=== PATIENT | female | born 1985 | race Caucasian/White ===

== ENCOUNTER 2024-08-02 10:03 | Emergency (ER) | payer OTHER, SELFPAY ==
--- NOTE | ~2024-08-02 | CT_ITS ---
EXAMINATION: CT CHEST WITHOUT CONTRAST CLINICAL INFORMATION: PNA, SOB/cough/night sweats COMPARISON: None available. TECHNIQUE: Multidetector volumetric CT imaging of the chest was done. Axial MIP volume rendering provided. Sagittal and coronal reformatted images were obtained. This CT examination was performed using dose optimization techniques as appropriate, variously including the following: *Automated exposure control *Adjustment of mA and/or kV according to patient size (this includes techniques or standardized protocols for targeted exams where dose is matched to indication/reason for exam; i.e. extremities or head) *Use of iterative reconstruction technique DLP: 291 mGy-cm FINDINGS: LUNGS: Consolidation in the lingula with air bronchograms. No suspicious lung nodules. MEDIASTINUM: The mediastinum is normal. Left thyroid mass measures 3.8 x 2.9 cm. The right thyroid gland is unremarkable. CORONARY ARTERY CALCIFICATION: None visualized on this study. PLEURA: There is no pleural effusion. No pleural mass or thickening. AXILLA: No lymphadenopathy. UPPER ABDOMEN: Unremarkable. OSSEOUS STRUCTURES: Mild degenerative changes of the thoracic spine. No destructive osseous lesions. CT/CT chest wo IV con IMPRESSION: 1. Consolidation in the lingula with air bronchograms, consistent with pneumonia. 2. Left thyroid mass measures 3.8 cm. Recommend thyroid ultrasound. Fleischner guidelines were followed. Electronically signed by: Yokasta Hdz MD 08/02/2024 01:21 PM [facility]
[2024-08-02 10:22] VITALS: BP 139/78; PULSE 95; RESP 18; TEMP 36.9; O2SAT 99; BMI 29.3
--- NOTE | 2024-08-02 10:22 | ED.SOB ---
HPI - SOB/Dyspnea General Chief Complaint: General Medical Stated Complaint: Pneumonia Time Seen by Provider: 08/02/24 10:50 Source: patient and family Mode of arrival: ambulatory Limitations: no limitations History of Present Illness ED Provider: Khloe Richey APRN HPI Narrative: 39-year-old female who has no known history presents to the ER with upper respiratory symptoms for more than 2 weeks. Patient reports she went to urgent care on July 22 and was diagnosed with a left lower lobe pneumonia. She was placed on azithromycin for 5 days and cefpodoxime for 7 days. She was also prescribed a Ventolin inhaler p.r.n.. Patient followed up this morning with urgent care as she continues to have symptoms of productive cough, night sweats. She had a repeat x-ray today at urgent care which showed continue left lower lobe pneumonia was referred into the emergency room for further evaluation. Patient denies any shortness of breath or chest pain. She denies any fever. She denies any weight loss. She denies any leg swelling or leg pain. She has had to use the inhaler intermittently. She reports the cough is productive with clear or white sputum. She denies any tobacco smoking or vaping Related Data Previous Rx's ?Medication ?Instructions ?Recorded codeine 10 mg-guaifenesin 100 mg/5 5 ml PO Q6H PRN cough #60 mL 08/02/24 mL oral liquid (Virtussin AC) doxycycline hyclate 100 mg capsule 100 mg PO BID #14 caps 08/02/24 prednisone 20 mg tablet 40 mg (2 x 20 mg) PO DAILY 5 days 08/02/24 #10 tabs Allergies Allergy/AdvReac Type Severity Reaction Status Date / Time No Known Allergies Allergy Verified 08/02/24 10:24 Review of Systems Review of Systems: Yes all other systems are reviewed and are negative Constitutional: Constitutional: Reports no additional constitutional complaints, Denies body ache(s), Denies chills, Denies fever(s), Denies headache(s), Reports night sweats, Denies weakness and Denies weight loss Eyes: Eyes: Reports no additional eye complaints and Denies change in vision ENT: Reports system reviewed and no additional complaints, except as documented, Denies dizziness, Denies headache(s), Denies nasal congestion, Denies nasal discharge and Denies neck pain Cardiovascular: Cardiovascular: Reports no additional cardiovascular complaints, Denies chest pain, Denies leg edema and Denies dyspnea Respiratory: Respiratory: Reports no additional respiratory complaints, Reports cough and Denies dyspnea Gastrointestinal: Gastrointestinal: Reports no additional gastrointestinal complaints, Denies abdominal pain, Denies diarrhea, Denies nausea and Denies vomiting Genitourinary: Genitourinary: Reports no additional female genitourinary complaints and Denies urinary incontinence Musculoskeletal: Musculoskeletal: Reports no additional musculoskeletal complaints, Denies back pain, Denies arthralgias, Denies joint swelling, Denies neck pain, Denies numbness and Denies tingling Integumentary/Breasts: Skin/Breast: Reports system reviewed and no additional complaints, except as docu and Denies rash Neurologic: Reports system reviewed and no additional complaints, except as documented, Denies Abnormal speech present, Denies dizziness, Denies headache(s), Denies numbness, Denies tingling and Denies weakness PMFSH Past Medical History Attestation statement: The following information was validated with the patient. Source: old records reviewed and nursing notes reviewed Social History Social History Advance Directives: No Advance Directives Information Provided: No Physical Exam Vital Signs: Vital Signs: Last Vital Signs Temp 98.1 F 08/02/24 13:56 Pulse 82 08/02/24 13:56 Resp 18 08/02/24 13:56 BP 141/87 H 08/02/24 13:56 Pulse Ox 99 08/02/24 13:56 O2 Del Method Room Air 08/02/24 13:56 BMI result Body Mass Index 29.3 Const: General: cooperative, healthy appearing, comfortable and no acute distress Orientation/consciousness: patient oriented x3 Limitations: no limitations HEENT: Head: Yes normal to inspection Ears: hearing grossly normal bilaterally and TM's normal bilaterally General nose exam: Normal external nose present Face and sinus: Yes normal facial exam Mouth: Normal oral and palatal mucosa present Throat: Yes posterior oropharynx normal, Yes tonsils normal and Yes uvula midline Eyes: General: appearance normal, both eyes and all related structures Pupils: Equal, round and reactive pupils present Neck: Neck: Yes normal visual inspection, Yes full ROM, Yes no lymphadenopathy and Yes no meningeal signs Chest: Chest palpation & inspection: normal inspection of the chest Resp: Effort & Inspection: normal respiratory effort Auscultation: clear to auscultation bilaterally Cardio: Rate: regular rate Rhythm: regular rhythm Peripheral pulses: Peripheral pulses 2+ throughout GI: Inspection: Yes normal to inspection Palpation (GI): Soft to palpation and nontender Auscultation: normal bowel sounds Back/Spine/Pelvis: Thoracic/Lumbar Spine: thoracic and lumbar spine normal to inspection Skin: General skin exam: no rashes or lesions noted Neuro: General: patient oriented x3, no meningeal signs, no focal motor deficits and normal sensation to monofilament Cranial nerves: Yes Equal, round and reactive pupils present Cognition (Neuro): normal cognition Speech: No Abnormal speech present Gait exam (Neuro): Normal gait present Motor exam (neuro): 5/5 motor strength present throughout Extrem: General: Yes normal to inspection, Yes no pedal edema and Yes no calf tenderness Course Course Course Narrative: This is a rapid medical exam. Deferred additional HPI, ROS, PE to primary provider. 39 yo female here with persistent PNA on x-ray with symptoms of cough, chest tightness, night sweats. Initially diagnosed 07/22 and given azithromycin/cefpodoxime. Had f/u x-ray today due to persistent symptoms and has continued PNA. Sent from with concern for need for CT/IV abx Will obtain labs. ONEIDA William APRN Reevaluation(s) Reevaluation #1: CT shows pneumonia. Patient be discharged home with antibiotics and prednisone. It also shows an incidental finding of a thyroid mass. I did discuss this finding with the patient she is aware of this already. She is being seen by Endocrinology and has a follow up in place. Reviewed worrisome signs and symptoms of when to return to the emergency room. Comfortable plan for discharge home. Medical Decision Making Medical Decision Making MDM Narrative: 39-year-old female here with persistent pneumonia on x-ray despite completing a course of antibiotics with symptoms of productive cough and night sweats. Patient is overall well-appearing Her lungs are clear Her vitals including her oxygen level are normal She may have continued pneumonia on x-ray although clinically she feels okay overall. I will obtain lab, and a CT of her chest Differential Diagnosis Differential Diagnoses: The differential diagnosis associated with the presentation includes Pneumonia, malignancy Low suspicion for PE with perc O Admission/Observation Consideration of admission/observation: Escalation of care including admission/observation considered CT does show a consolidation. Patient has done 1 round of antibiotics with continued pneumonia seen. Now this may be residual pneumonia but patient is still complaining of some cough and night sweats and so I would give her another round of antibiotics as well as add some prednisone. She has no hypoxia or tachypnea and is not requiring supplemental oxygen. She is not meet any sepsis criteria. She is overall very well-appearing and so I do not believe that she needs admission at this time for IV antibiotics. This was discussed with the patient and she agrees with this plan of care. Lab Data MDM Lab Attestation statement: I reviewed the patient's lab results. 08/02/24 10:34 08/02/24 10:34 Labs: Lab Results 08/02/24 Range/Units 10:34 WBC 7.1 (4.8-10.8) X10*3/uL RBC 4.35 (4.20-5.50) X10*6/uL Hgb 13.2 (12.0-16.0) g/dl Hct 39.4 (37.0-47.0) % MCV 90.6 (80.0-98.0) fL MCH 30.3 (27.0-33.0) pg MCHC 33.5 (31.0-35.0) g/dl RDW 12.7 (11.0-16.0) % Plt Count 385 (160-400) X10*3/uL MPV 9.4 (9.4-12.3) fL Immature Gran % (Auto) 0.4 (0.0-0.4) % Neut % (Auto) 68.4 (45-73) % Lymph % (Auto) 19.5 L (20-40) % Navarro % (Auto) 8.0 (2-11) % Eos % (Auto) 3.4 (0-4) % Baso % (Auto) 0.3 (0-2) % Lymph # (Auto) 1.4 (1.2-4.9) X10*3/uL Navarro # (Auto) 0.6 (0.1-1.2) X10*3/uL Eos # (Auto) 0.2 (0.0-0.4) X10*3/uL Baso # (Auto) 0.0 (0.0-0.2) X10*3/uL Abs Immat Gran (auto) 0.03 (0.00-0.03) X10*3/uL Absolute Neuts (auto) 4.9 (2.0-8.3) x10*3/uL Absolute Nucleated RBC 0.000 (0.0-0.012) X10*3/uL Nucleated RBC % (auto) 0.0 (0.0-0.2) /100WBC Sodium 142 (135-145) mmol/L Potassium 4.3 (3.3-5.1) mmol/L Chloride 109 H (96-108) mmol/L Carbon Dioxide 21 L (22-29) mmol/L Anion Gap 16 (12-20) BUN 13 (9-16) mg/dL Creatinine 0.84 (0.5-1.4) mg/dL Estim Creat Clear Calc 97.2 Estimated GFR > 60 Random Glucose 110 (60-115) mg/dL Lactic Acid 1.1 (0.5-2.0) mmol/L Calcium 10.1 (8.4-10.2) mg/dL Total Bilirubin 0.6 (0.0-1.0) mg/dL Direct Bilirubin 0.2 (0.0-0.5) mg/dL AST 25 (5-31) U/L ALT 29 (0-31) U/L Alkaline Phosphatase 86 (39-117) U/L Total Protein 7.8 (6.5-8.0) g/dL Albumin 4.5 (3.5-5.0) g/dL Beta HCG, Quant < 2 mIU/mL Influenza Type A (PCR) NEGATIVE (Negative) Influenza Type B (PCR) NEGATIVE (Negative) RSV RNA Qual (PCR) NEGATIVE (Negative) SARS-CoV-2 RNA (RT-PCR) NEGATIVE (Negative) Independent Interpretation I performed an independent interpretation of an: CT Scan Interpretation: I independently reviewed the CT scan agree with the radiology report Radiology Impression Discussion of test interpretation with radiology: I have reviewed the radiologist's reading. Radiologist Impression: [address] [id number] [address] Scan Report Signed Patient: Dasia Luis MR#: [id number] : 1985 Acct:[id number] Age/Sex: 39 / F ADM Date: 08/02/24 Loc: HO.ED Attending Dr: Ordering Physician: Khloe Coelho NP Date of Service: 08/02/24 Procedure(s): CT chest wo IV con Accession Number(s): [id number] cc: Physician,Unknown ; Khloe Coelho NP~ EXAMINATION: CT CHEST WITHOUT CONTRAST CLINICAL INFORMATION: PNA, SOB/cough/night sweats COMPARISON: None available. TECHNIQUE: Multidetector volumetric CT imaging of the chest was done. Axial MIP volume rendering provided. Sagittal and coronal reformatted images were obtained. This CT examination was performed using dose optimization techniques as appropriate, variously including the following: *Automated exposure control *Adjustment of mA and/or kV according to patient size (this includes techniques or standardized protocols for targeted exams where dose is matched to indication/reason for exam; i.e. extremities or head) *Use of iterative reconstruction technique DLP: 291 mGy-cm FINDINGS: LUNGS: Consolidation in the lingula with air bronchograms. No suspicious lung nodules. MEDIASTINUM: The mediastinum is normal. Left thyroid mass measures 3.8 x 2.9 cm. The right thyroid gland is unremarkable. CORONARY ARTERY CALCIFICATION: None visualized on this study. PLEURA: There is no pleural effusion. No pleural mass or thickening. AXILLA: No lymphadenopathy. UPPER ABDOMEN: Unremarkable. OSSEOUS STRUCTURES: Mild degenerative changes of the thoracic spine. No destructive osseous lesions. CT/CT chest wo IV con IMPRESSION: 1. Consolidation in the lingula with air bronchograms, consistent with pneumonia. 2. Left thyroid mass measures 3.8 cm. Recommend thyroid ultrasound. Fleischner guidelines were followed. Electronically signed by: Yokasta Hdz MD 08/02/2024 01:21 PM [facility] Independent Historian Clinical information obtained from an independent historian. History obtained from or confirmed by: Spouse Prescription Management I considered prescription management with: Antibiotic Discharge Plan Discharge Clinical Impression: Pneumonia Patient Disposition: Home, Self-Care Instructions: Community Acquired Pneumonia (ED) Additional Instructions: Your CT scan does show a pneumonia on your left lower lobe. Your blood work is reassuring. Your testing for COVID, flu, RSV are negative. Continue your inhaler as needed We are giving you an alternative antibiotic Take the prednisone as prescribed Use the cough medication at night time. It can make you sleepy. Follow-up with your primary care doctor after you complete the antibiotic for reassessment. Return for worsening symptoms Your Ct scan has an incidental finding of a left sided thyroid mass. Continue with your outpatient plan Prescriptions: New prednisone 20 mg tablet 40 mg PO DAILY 5 Days Qty: 10 0RF doxycycline hyclate 100 mg capsule 100 mg PO BID Qty: 14 0RF codeine-guaifenesin [Virtussin AC] 10-100 mg/5 mL liquid 5 ml PO Q6H PRN (Reason: cough) Qty: 60 0RF Referrals: Physician,Unknown J [Primary Care Provider] - 1 week Interventions: ED Discharge Assessment Last Done: 08/02/24 13:56 Discharge Date/Time: 08/02/24 13:57 Print Language: Bermudian
[2024-08-02 10:40] LABS: MANUAL DIFF FLAG NO
[2024-08-02 10:42] LABS: Basophils Percent Auto 0.3 % (0-2); Eosinophils Absolute Auto 0.2 X10*3/uL (0.0-0.4); Eosinophils Percent Auto 3.4 % (0-4); Hematocrit 39.4 % (37.0-47.0); Hemoglobin 13.2 g/dl (12.0-16.0); Imm Gran Abs Auto 0.03 X10*3/uL (0.00-0.03); Imm Gran Pct Auto 0.4 % (0.0-0.4); Lymphocytes Absolute Auto 1.4 X10*3/uL (1.2-4.9); Lymphocytes Percent Auto 19.5 % (20-40); Mean Corpuscular HGB Conc 33.5 g/dl (31.0-35.0); Mean Corpuscular Hemoglobin 30.3 pg (27.0-33.0); Mean Corpuscular Volume 90.6 fL (80.0-98.0); Mean Platelet Volume 9.4 fL (9.4-12.3); Monocytes Absolute Auto 0.6 X10*3/uL (0.1-1.2); Neutrophils Absolute Auto 4.9 x10*3/uL (2.0-8.3); Neutrophils Percent Auto 68.4 % (45-73); Platelet Count 385 X10*3/uL (160-400); Red Blood Count 4.35 X10*6/uL (4.20-5.50); Red Cell Distribution Width 12.7 % (11.0-16.0); White Blood Count 7.1 X10*3/uL (4.8-10.8)
[2024-08-02 10:57] LABS: Lactic Acid 1.1 mmol/L (0.5-2.0)
[2024-08-02 11:03] LABS: Alanine Aminotransferase 29 U/L (0-31); Albumin Level 4.5 g/dL (3.5-5.0); Alkaline Phosphatase 86 U/L (39-117); Anion Gap 16 (12-20); Aspartate Amino Transferase 25 U/L (5-31); Bilirubin Direct 0.2 mg/dL (0.0-0.5); Bilirubin Total 0.6 mg/dL (0.0-1.0); Blood Urea Nitrogen 13 mg/dL (9-16); Calcium 10.1 mg/dL (8.4-10.2); Carbon Dioxide 21 mmol/L (22-29); Chloride 109 mmol/L (96-108); Creatinine Clr Calc Pharmacy 97.2; Estimated Glomerular Filt Rate > 60; Glucose Random 110 mg/dL (60-115); HCG Quantitative < 2 mIU/mL; Potassium 4.3 mmol/L (3.3-5.1); Sodium 142 mmol/L (135-145); Total Protein 7.8 g/dL (6.5-8.0)
[2024-08-02 11:19] LABS: Influenza A PCR NEGATIVE (Negative); Influenza B PCR NEGATIVE (Negative); Resp Syncy Virus RNA Qual PCR NEGATIVE (Negative); SARS COV2 PCR INHOUSE NEGATIVE (Negative)
[2024-08-02 12:21] VITALS: BP 141/87; PULSE 82; RESP 18; TEMP 36.7; O2SAT 99
[2024-08-02 13:56] VITALS: BP 141/87; PULSE 82; RESP 18; TEMP 36.7; O2SAT 99
== END 2024-08-02 13:57 | disposition home or self-care (01) ==
PROVIDERS: Nurse Practitioner Family; Emergency Provider Emergency Medicine
DX: J18.9 Pneumonia, unspecified organism (principal); R06.02 Shortness of breath; R05.9 Cough, unspecified; Z03.818 Encounter for observation for suspected exposure to other biological agents ruled out; Z79.899 Other long term (current) drug therapy
CPT/HCPCS: 0241U; 36415; 71250; 80048; 80076; 83605; 84702; 85025; 87040; 99283